=== PATIENT | female | born 1945 | race Caucasian/White ===

== ENCOUNTER → 2017-06-13 | Outpatient (CLI) | payer MEDICARE ==
[~2017-06-13] MED LIST: AMLODIPINE BESY10 MG PO; BUMETANIDE2 MG PO; CLARITIN-D 241 EACH PO; DIAZEPAM5 MG PO; DOCUSATE SODIU100 MG PO; DULCOLAX5 MG PO; FENTANYL1 EAC1 TD; FOLIC ACID0.8 MG PO; GLIMEPIRIDE4 MG PO; HUMALOG100 UNITS/ SQ; ISOSORBIDE MONO60 MG PO; LEVEMIR100 UNIT/1 SQ; LEVOTHYROXINE75 MCG PO; LEXAPRO10 MG PO; LIDODERM700 MG TD; METOLAZONE2.5 MG PO; PANTOPRAZOLE SO40 MG PO; PLAVIX PO; POTASSIUM CHLO20 ME1 PO; SPRYCEL70 MG; TOPROL XL50 MG PO; ULTRAM50 MG PO; VITAMIN D250000 UNIT PO; ZOFRAN PO
--- NOTE | 2017-07-18 09:33 | Polysomnography ---
DATE OF STUDY: June 13, 2017 BMI 24. REASON FOR THE SLEEP STUDY: The patient needed to have a sleep study to restart positive airway pressure therapy again. In the past, patient was on PAP (positive airway pressure) therapy for her sleep apnea. However, her machine was taken back due to noncompliance. The patient could not use it at the time, primarily because she was having issues with mask discomfort and also issues with wearing the machine given her pain related to neck problems. FINDINGS DURING THE SLEEP STUDY: During the sleep study, the patient's sleep efficiency was 85.6%. REM latency was 196 minutes and sleep onset was 11 minutes. The patient had 15 obstructive apneas, 5 mixed apneas, 9 centrals and 17 RERAs (respiratory effort-related arousals). The overall apnea/hypopnea index was 4.8, and the overall respiratory disturbance index was 7.7. The patient was started at CPAP of 4 cm of water and was gradually titrated upwards to a pressure of 12 cm of water. The setting was then changed to BiPAP at 10/6 cm of water due to a backup rate of 10 due to central apneas. The patient, however, did not have many central apneas and did well at a CPAP of 12 cm of water. The patient had increase in periodic leg movements. Her PLM index (periodic leg movement index) was 29.2. The patient's oxygen saturation was 95% at the lowest, and mean was 97%. The patient had 16% stage REM sleep, 5.4% stage 1 sleep, 36.9% stage 2 sleep and 41.6% stage 3 sleep. The patient's heart rate ranged between 56 and 82 beats per minute, and some occasional premature ventricular complexes (PVCs) were noted. At 12 cm of water, the patient had 2 obstructive apneas. The AHI was 4.4, and the lowest oxygen saturation was 97%. Patient was at this pressure for 7 hours 19 minutes. IMPRESSION: Severe obstructive sleep apnea as noted on home sleep study. RECOMMENDATIONS 1. For the patient's sleep apnea, auto-PAP 4 to 14 cm of water is recommended. 2. Patient should also consult ENT because she has had discomfort due to nasal masks in the past. 3. Patient should not drive or operate heavy machinery if drowsy. 4. For the patient's elevated periodic leg movements, no further medical treatment is necessary at this time given the patient's severe obstructive sleep apnea. If, however, the patient's symptom of nonrefreshing sleep continues, then further evaluation and treatment of the periodic leg movements is recommended. 5. Followup with the referring physician for further treatment and care of sleep apnea. Job#: [id number]
== END ==
LOC: SLEEP 19:50
PROVIDERS: ATTEND Internal Medicine Sleep Medicine
DX: G47.33 Obstructive sleep apnea (adult) (pediatric) (principal)
CPT/HCPCS: 95811